=== PATIENT | female | born 1970 | race Native Hawaiian/Other Pacific Islander ===

== ENCOUNTER 2020-09-02 18:14 | Emergency (ER) | payer OTHER ==
[~2020-09-02] VITALS: Ht 165.1 cm; Wt 95.4 kg
[2020-09-03 00:05] VITALS: BP 113/74; TEMP 98.7
== END 2020-09-03 00:05 | disposition home or self-care (01) ==
LOC: ED 18:14
DX: R51.9 Headache, unspecified (principal); S16.1XXA Strain of muscle, fascia and tendon at neck level, initial encounter; S80.02XA Contusion of left knee, initial encounter; S80.01XA Contusion of right knee, initial encounter; V43.52XA Car driver injured in collision with other type car in traffic accident, initial encounter; Y92.488 Other paved roadways as the place of occurrence of the external cause
CPT/HCPCS: 99283

== ENCOUNTER 2022-02-16 14:52 | Outpatient (CLI) | payer OTHER | END 2022-02-16 19:47 | disposition home or self-care (01) | LOC: RAD 14:52 | PROVIDERS: ATTEND Internal Medicine | DX: J40 Bronchitis, not specified as acute or chronic (principal) ==

== ENCOUNTER 2022-04-02 11:04 | Emergency (ER) | payer OTHER ==
[~2022-04-02] VITALS: Ht 165.1 cm; Wt 91.6 kg
[2022-04-02 11:36] LABS: PLATELET COUNT 276 K/uL (152-353)
[2022-04-02 12:00] LABS: PARTIAL THROMBOPLASTIN TIME 22.7 SECONDS (24.5-33.6)
[2022-04-02 13:20] VITALS: BP 103/71; TEMP 97.3
== END 2022-04-02 13:20 | disposition home or self-care (01) ==
LOC: ED 11:04
PROVIDERS: Hospitalist
DX: R07.89 Other chest pain (principal); K21.9 Gastro-esophageal reflux disease without esophagitis; R11.0 Nausea
CPT/HCPCS: 36415; 80053; 82550; 83880; 84484; 85027; 85610; 85730; 93005; 96360; 96374; 99284; J2405

== ENCOUNTER 2022-04-06 16:11 | Outpatient (CLI) | payer OTHER | END 2022-04-06 19:32 | disposition home or self-care (01) | LOC: RAD 16:11 | PROVIDERS: ATTEND Internal Medicine | DX: M75.52 Bursitis of left shoulder (principal) ==

== ENCOUNTER 2022-08-31 16:15 | Outpatient (CLI) | payer OTHER | END 2022-08-31 19:01 | disposition home or self-care (01) | LOC: RAD 16:15 | PROVIDERS: ATTEND Internal Medicine | DX: M25.562 Pain in left knee (principal) ==

== ENCOUNTER 2022-09-06 09:07 | Emergency (ER) | payer OTHER ==
[~2022-09-06] VITALS: Ht 165.1 cm; Wt 98.9 kg
[2022-09-06 09:43] LABS: PLATELET COUNT 341 K/uL (152-353)
[2022-09-06 11:44] VITALS: BP 112/68; TEMP 98
== END 2022-09-06 11:44 | disposition home or self-care (01) ==
LOC: ED 09:07
PROVIDERS: Emergency Medicine Emergency Medical Services
DX: J18.9 Pneumonia, unspecified organism (principal); R09.1 Pleurisy
CPT/HCPCS: 80053; 83735; 84484; 85027; 85379; 87040; 93005; 96365; 96375; 99284; J0696; J1885

== ENCOUNTER 2022-09-21 09:56 | Outpatient (CLI) | payer OTHER | END 2022-09-21 19:58 | disposition home or self-care (01) | LOC: US 09:56 | PROVIDERS: ATTEND Internal Medicine | DX: R74.01 Elevation of levels of liver transaminase levels (principal) ==

== ENCOUNTER 2023-04-06 07:51 | Outpatient (CLI) | payer OTHER | END 2023-04-06 18:50 | LOC: NM 07:51 → US 07:51 → NM 08:15 | PROVIDERS: ATTEND Internal Medicine | DX: R10.11 Right upper quadrant pain (principal); M79.651 Pain in right thigh | CPT/HCPCS: A9537 ==

== ENCOUNTER 2023-06-20 14:50 | Outpatient (CLI) | payer OTHER | END 2023-06-20 21:36 | disposition home or self-care (01) | LOC: RAD 14:50 | PROVIDERS: ATTEND Internal Medicine | DX: M54.59 Other low back pain (principal) ==

== ENCOUNTER 2023-07-26 08:55 | Outpatient (CLI) | payer OTHER | END 2023-07-26 20:43 | disposition home or self-care (01) | LOC: MAMMO 08:55 | PROVIDERS: ATTEND Internal Medicine | DX: Z12.31 Encounter for screening mammogram for malignant neoplasm of breast (principal); Z78.0 Asymptomatic menopausal state ==